=== PATIENT | female | born 1940 | race Two or more races ===

== ENCOUNTER 2017-05-30 10:13 | Outpatient (CLI) | payer OTHER ==
[~2017-05-30 10:13] MED LIST: CADUET 10 MG/101 TAB; CLEOCIN HCL300 MG PO; HYZAAR 100-251 UDTAB; LANTUS100 U/ML; LASIX20 MG; MICARDIS40 MG; NOVOLOG100 U/ML; ORASEP SPRAY30 ML MM; SYNTHROID50 MCG; TOPROL XL25 MG
== END 2017-05-30 12:00 | disposition home or self-care (01) ==
LOC: LAB 10:13
DX: I10 Essential (primary) hypertension (principal); E11.9 Type 2 diabetes mellitus without complications; E03.8 Other specified hypothyroidism; E78.2 Mixed hyperlipidemia; N39.0 Urinary tract infection, site not specified; R82.79 Other abnormal findings on microbiological examination of urine

== ENCOUNTER → 2017-08-05 | Outpatient (CLI) | payer OTHER | END | disposition home or self-care (01) | LOC: NUCLEAR 10:58 | DX: E11.22 Type 2 diabetes mellitus with diabetic chronic kidney disease (principal); I73.9 Peripheral vascular disease, unspecified ==

== ENCOUNTER 2017-11-15 07:46 | Emergency (ER) | payer OTHER ==
[~2017-11-15] VITALS: Ht 152.4 cm; Wt 83.9 kg
== END 2017-11-15 14:44 | disposition home or self-care (01) ==
LOC: ER 07:46
DX: R60.0 Localized edema (principal); I87.2 Venous insufficiency (chronic) (peripheral)

== ENCOUNTER 2017-11-18 12:53 | Outpatient (CLI) | payer OTHER | END 2017-11-18 13:00 | disposition home or self-care (01) | LOC: LAB 12:53 | DX: I10 Essential (primary) hypertension (principal); E11.9 Type 2 diabetes mellitus without complications; E03.8 Other specified hypothyroidism; E78.2 Mixed hyperlipidemia; N39.0 Urinary tract infection, site not specified ==

== ENCOUNTER 2021-03-14 10:59 | Emergency (ER) | payer OTHER ==
[~2021-03-14] VITALS: Ht 157.5 cm; Wt 74.8 kg
[2021-03-14] MEDS ORDERED: PRILOSEC OTC20 MG (11:16)
[2021-03-14] MEDS ORDERED: FLONASE ALLERG9.9 ML (11:16)
[2021-03-14] MEDS ORDERED: AMLODIPINE-OLM1 EACH (11:17)
[2021-03-14] MEDS ORDERED: HUMALOG100 UNIT/2 (11:17)
[2021-03-14] MEDS ORDERED: XARELTO10 MG (11:17)
[2021-03-14] MEDS ORDERED: MONTELUKAST SODI4 M1 (11:17)
== END 2021-03-14 17:31 | disposition home or self-care (01) ==
LOC: ER 10:59
DX: J84.10 Pulmonary fibrosis, unspecified (principal); R06.02 Shortness of breath

== ENCOUNTER 2021-11-16 12:12 | Emergency (ER) | payer OTHER ==
[~2021-11-16] VITALS: Ht 152.4 cm; Wt 74.8 kg
[~2021-11-16 12:12] MED LIST changes: +AMLODIPINE-OLM1 EACH; +FLONASE ALLERG9.9 ML; +HUMALOG100 UNIT/2; +MONTELUKAST SODI4 M1; +PRILOSEC OTC20 MG; +XARELTO10 MG
[2021-11-16] MEDS ORDERED: CLOTRIMAZOLE-BE15 GM TOP (20:59)
[2021-11-16] MEDS ORDERED: FLUCONAZOLE200 MG PO (20:59)
== END 2021-11-16 21:26 | disposition home or self-care (01) ==
LOC: ER 12:12
DX: E11.65 Type 2 diabetes mellitus with hyperglycemia (principal); Z79.4 Long term (current) use of insulin; I10 Essential (primary) hypertension; E78.00 Pure hypercholesterolemia, unspecified; I49.9 Cardiac arrhythmia, unspecified; Z20.822 Contact with and (suspected) exposure to COVID-19; Z88.6 Allergy status to analgesic agent; Z88.0 Allergy status to penicillin

== ENCOUNTER 2022-07-24 09:01 | Inpatient (IN) | payer OTHER ==
[~2022-07-24] VITALS: Ht 152.4 cm; Wt 147.9 kg
[~2022-07-24 09:01] MED LIST changes: +CLOTRIMAZOLE-BE15 GM TOP; +FLUCONAZOLE200 MG PO
--- NOTE | 2022-07-24 09:07 | NUR ---
PACIENTE ALERTA Y ORIENTDA X 3 REFIERE MAREOS Y VISION BORROSA. PACIENTE DEPENDIETE DE OXIGENO, SE LE REALIZA EKG Y SE CONECTA A CANULA A 2 LITRS.
[2022-07-24] MEDS ORDERED: MONTELUKAST SODI1 GM MC (09:14)
[2022-07-24] MEDS ORDERED: TOPROL XL25 M1 (09:15)
[2022-07-24] MEDS ORDERED: ACID REDUCER20 M1 (09:15)
[2022-07-24] MEDS ORDERED: LASIX20 MG PO (09:15)
[2022-07-24] MEDS ORDERED: TIROSINT13 MCG (09:16)
[2022-07-24] MEDS ORDERED: JARDIANCE10 MG (09:16)
[2022-07-24] MEDS ORDERED: XARELTO10 MG (09:16)
[2022-07-24] MEDS ORDERED: COZAAR25 MG PO (09:16)
--- NOTE | 2022-07-24 11:18 | NUR ---
SE EDUCA PACEINTE SOBRE ORDENES MEDICAS LA MISMA REFIERE ENTENDER, SE LE REALIZAN MUESTRAS DE LABOTORIO SE ENVIAN DE FORMA INMEDIATA, SE CANALIZA A LA MAISMA CON UN #20 EN IZQUIERDA. SE ESAU CON GUTIERREZ EN DARREN CON BARANDAS ELEVADAS. ORIENTADA Y ALERTA X3.
--- NOTE | 2022-07-24 15:12 | NUR ---
SE RECIBE PTE EN EL CUBICULO #17 EN EL AREA DE CENTRO DE DOLOR DE PECHO PTE ALERTA Y ORIENTADO POR 3 EN COMPANIA DE GREGG FAMILIARES, PTE NO PRESENTA DOLOR AL MOMENTO PTE CONECETADO A MONITOR CARDIACO Y OXYMETRIA DE PULSO, SE PBSERVA VENOPUNCION PATENTE Y EUGENIO DE EDEMA PTE SE MANTIENE EN OBSERVACION Y BAJO TRATAMIENTO.
--- NOTE | 2022-07-24 15:17 | NUR ---
SE COLOCA NASSAR BAJO MEDIDAS ASEPTICAS Y ESTERILES. SE LE COLECTA MUESTRA DE U/A Y U/C SE OBSERVA ORINA COLOR AMARILLO CHRISTOPHE.
[2022-07-27] MEDS ORDERED: LIPITOR40 MG PO (14:38)
[2022-07-27] MEDS ORDERED: COZAAR25 MG PO (14:38)
[2022-07-27] MEDS ORDERED: LASIX20 MG PO (14:39)
[2022-07-27] MEDS ORDERED: JARDIANCE10 MG PO (14:39)
[2022-07-27] MEDS ORDERED: TIROSINT13 MCG PO (14:41)
== END 2022-07-27 21:34 | disposition home or self-care (01) | DRG 280 ==
LOC: ER 09:01 → MEDI 17:19
PROVIDERS: ADMIT Internal Medicine; ATTEND Internal Medicine
PROC: 4A12X4Z Monitoring of Cardiac Electrical Activity, External Approach (ICD-10-PCS; 2022-07-24)
PROC: B24BYZZ Ultrasonography of Heart with Aorta using Other Contrast (ICD-10-PCS; 2022-07-24)
PROC: BW24ZZZ Computerized Tomography (CT Scan) of Chest and Abdomen (ICD-10-PCS; 2022-07-25)
PROC: 0W9B3ZZ Drainage of Left Pleural Cavity, Percutaneous Approach (ICD-10-PCS; principal; 2022-07-26)
PROC: 30233N1 Transfusion of Nonautologous Red Blood Cells into Peripheral Vein, Percutaneous Approach (ICD-10-PCS; 2022-07-26)
DX: I11.0 Hypertensive heart disease with heart failure (principal); I21.A1 Myocardial infarction type 2; I50.23 Acute on chronic systolic (congestive) heart failure; J91.8 Pleural effusion in other conditions classified elsewhere; I23.7 Postinfarction angina; D63.8 Anemia in other chronic diseases classified elsewhere; E11.649 Type 2 diabetes mellitus with hypoglycemia without coma; E11.42 Type 2 diabetes mellitus with diabetic polyneuropathy; E03.8 Other specified hypothyroidism; E78.5 Hyperlipidemia, unspecified; M32.9 Systemic lupus erythematosus, unspecified; J84.10 Pulmonary fibrosis, unspecified; Z79.4 Long term (current) use of insulin

== ENCOUNTER 2022-07-28 12:58 | Inpatient (IN) | payer OTHER ==
[~2022-07-28] VITALS: Ht 152.4 cm; Wt 68.0 kg
[~2022-07-28 12:58] MED LIST changes: +ACID REDUCER20 M1; +COZAAR25 MG PO; +JARDIANCE10 MG; +JARDIANCE10 MG PO; +LASIX20 MG PO; +LIPITOR40 MG PO; +MONTELUKAST SODI1 GM MC; +TIROSINT13 MCG; +TIROSINT13 MCG PO; +TOPROL XL25 M1
--- NOTE | 2022-07-28 13:08 | NUR ---
SE RECIBE PTE ALERTA YORIENTADA X2 ACOMPANADA DE FAMILIAR EN AMBULANCIA LA CUAL REFIERE VENIR POR DOLOR DE PECHO. PARAMEDICOS REFIEREN ADMINISTRAR TORSTEN ASPIRINA 325 Y 0.9NSS DE 250ML. SE REALIZA EKG A PTE Y SE COLOCA EN DARREN.
--- NOTE | 2022-07-28 14:22 | NUR ---
SE EDUCA A PTE SOBRE TX MEDICO SE MADELINE MUESTRAS DE LABORATORIO UTILIZANDO MEDIDAS ASEPTICAS. SE COLOCA IV FLUIDS A PTE. SE NOTIFICA ESTUDIO DE RX PENDIENTE A REALIZAR.
--- NOTE | 2022-07-28 15:30 | NUR ---
SE RECIBE PTE ALERTA ORIENTADA X3 EN DARREN CON BARANDAS ELEVADAS POR GREGG SEGURIDAD.VENOPUNCION PATENTE EUGENIO DE EDEMA Y ERITEMA.PENDIENTE RESULTADOS DE LABORATORIO PARA REEVALUACION MEDICA.
[2022-08-10] MEDS ORDERED: MORPHINE 44 MG/1 ML IM (12:00)
[2022-08-10] MEDS ORDERED: ISOSORBIDE MONO30 MG PO (12:00)
[2022-08-10] MEDS ORDERED: FENTANYL1 EAC3 TD (12:00)
[2022-08-10] MEDS ORDERED: LASIX20 MG PO (12:00)
== END 2022-08-11 20:53 | disposition home or self-care (01) | DRG 280 ==
LOC: ER 12:58 → MEDI 20:07
PROVIDERS: ADMIT Internal Medicine; ATTEND Internal Medicine
PROC: BW24ZZZ Computerized Tomography (CT Scan) of Chest and Abdomen (ICD-10-PCS; 2022-07-28)
PROC: 0W993ZZ Drainage of Right Pleural Cavity, Percutaneous Approach (ICD-10-PCS; principal; 2022-07-30)
PROC: 5A0955A Assistance with Respiratory Ventilation, Greater than 96 Consecutive Hours, High Flow/Velocity Cannula (ICD-10-PCS; 2022-07-30)
PROC: 4A12X4Z Monitoring of Cardiac Electrical Activity, External Approach (ICD-10-PCS; 2022-07-30)
PROC: 30233N1 Transfusion of Nonautologous Red Blood Cells into Peripheral Vein, Percutaneous Approach (ICD-10-PCS; 2022-07-31)
PROC: B24BYZZ Ultrasonography of Heart with Aorta using Other Contrast (ICD-10-PCS; 2022-07-31)
PROC: 02HV33Z Insertion of Infusion Device into Superior Vena Cava, Percutaneous Approach (ICD-10-PCS; 2022-08-02)
PROC: BW24ZZZ Computerized Tomography (CT Scan) of Chest and Abdomen (ICD-10-PCS; 2022-08-03)
PROC: 0W9B3ZZ Drainage of Left Pleural Cavity, Percutaneous Approach (ICD-10-PCS; 2022-08-06)
DX: I13.0 Hypertensive heart and chronic kidney disease with heart failure and stage 1 through stage 4 chronic kidney disease, or unspecified chronic kidney disease (principal); I50.33 Acute on chronic diastolic (congestive) heart failure; I21.A1 Myocardial infarction type 2; J18.8 Other pneumonia, unspecified organism; D62 Acute posthemorrhagic anemia; J91.8 Pleural effusion in other conditions classified elsewhere; J98.11 Atelectasis; N17.9 Acute kidney failure, unspecified; B37.49 Other urogenital candidiasis; N18.9 Chronic kidney disease, unspecified; I27.29 Other secondary pulmonary hypertension; I25.10 Atherosclerotic heart disease of native coronary artery without angina pectoris; J84.10 Pulmonary fibrosis, unspecified; E11.65 Type 2 diabetes mellitus with hyperglycemia; Z66 Do not resuscitate; M32.9 Systemic lupus erythematosus, unspecified; R59.0 Localized enlarged lymph nodes; Z79.84 Long term (current) use of oral hypoglycemic drugs